=== PATIENT | female | born 1940 | race Caucasian/White ===

== ENCOUNTER → 2017-10-13 | Outpatient (CLI) | payer MEDICARE, OTHER ==
[~2017-10-13] MED LIST: ASCO500 PO; BENTYL; CONEST.625 PO; CYCL10 PO; DICMIS50EC PO; MELO7.5 PO; MULVITMINF PO; NIAC250ER PO; OXYACE5T PO; PRED20 PO
== END ==
LOC: PLD 13:23 → LAB SHORT 13:23
DX: D48.5 Neoplasm of uncertain behavior of skin (principal)
CPT/HCPCS: 88305

== ENCOUNTER → 2019-08-16 | Outpatient (CLI) | payer MEDICARE, OTHER | END | disposition home or self-care (01) | LOC: PLD 11:22 → LAB SHORT 11:22 | DX: D48.5 Neoplasm of uncertain behavior of skin (principal) | CPT/HCPCS: 88305 ==

== ENCOUNTER 2020-03-07 10:19 | Day surgery (SDC) | payer MEDICARE, OTHER ==
[~2020-03-07] VITALS: Ht 154.9 cm; Wt 61.5 kg
[2020-03-07] MEDS ORDERED: TRAM50 PO (10:59)
[2020-03-07] MEDS ORDERED: LOW DOSE ASPIRI81 M1 PO (10:59)
== END 2020-03-07 11:39 | disposition home or self-care (01) ==
LOC: ORSCSDS 10:19
PROVIDERS: Anesthesiology
PROC: 3E0R33Z Introduction of Anti-inflammatory into Spinal Canal, Percutaneous Approach (ICD-10-PCS; principal; 2020-03-07 11:30)
DX: M51.16 Intervertebral disc disorders with radiculopathy, lumbar region (principal); M54.5 Low back pain; Z79.82 Long term (current) use of aspirin; Z79.899 Other long term (current) drug therapy
CPT/HCPCS: J1040; J2001

== ENCOUNTER 2020-04-20 14:27 | Day surgery (SDC) | payer MEDICARE, OTHER ==
[~2020-04-20] VITALS: Ht 154.9 cm; Wt 63.8 kg
[~2020-04-20 14:27] MED LIST changes: +LOW DOSE ASPIRI81 M1 PO; +TRAM50 PO
== END 2020-04-20 16:02 | disposition home or self-care (01) ==
LOC: ORSCSDS 14:27
PROVIDERS: Anesthesiology
PROC: 3E0R33Z Introduction of Anti-inflammatory into Spinal Canal, Percutaneous Approach (ICD-10-PCS; principal; 2020-04-20 15:45)
DX: M51.16 Intervertebral disc disorders with radiculopathy, lumbar region (principal); Z79.01 Long term (current) use of anticoagulants; Z79.899 Other long term (current) drug therapy
CPT/HCPCS: J1040

== ENCOUNTER 2020-05-10 08:23 | Day surgery (SDC) | payer MEDICARE, OTHER ==
[~2020-05-10] VITALS: Ht 154.9 cm; Wt 64.7 kg
== END 2020-05-10 09:28 | disposition home or self-care (01) ==
LOC: ORSCSDS 08:23
PROVIDERS: Anesthesiology
PROC: 3E0R33Z Introduction of Anti-inflammatory into Spinal Canal, Percutaneous Approach (ICD-10-PCS; principal; 2020-05-10 09:30)
DX: M51.16 Intervertebral disc disorders with radiculopathy, lumbar region (principal); Z79.82 Long term (current) use of aspirin; Z79.899 Other long term (current) drug therapy
CPT/HCPCS: J1040

== ENCOUNTER 2020-12-26 10:40 | Day surgery (SDC) | payer MEDICARE, OTHER ==
[~2020-12-26] VITALS: Ht 154.9 cm; Wt 67.4 kg
== END 2020-12-26 12:06 | disposition home or self-care (01) ==
LOC: ORSCSDS 10:40
PROVIDERS: Anesthesiology
PROC: 3E0R33Z Introduction of Anti-inflammatory into Spinal Canal, Percutaneous Approach (ICD-10-PCS; principal; 2020-12-26 12:00)
DX: M51.16 Intervertebral disc disorders with radiculopathy, lumbar region (principal); E78.00 Pure hypercholesterolemia, unspecified; Z79.82 Long term (current) use of aspirin; Z79.899 Other long term (current) drug therapy
CPT/HCPCS: J1040

== ENCOUNTER 2021-04-05 10:12 | Day surgery (SDC) | payer MEDICARE, OTHER ==
[~2021-04-05] VITALS: Ht 154.9 cm; Wt 68.2 kg
== END 2021-04-05 11:50 | disposition home or self-care (01) ==
LOC: ORSCSDS 10:12
PROVIDERS: Anesthesiology
PROC: 3E0R33Z Introduction of Anti-inflammatory into Spinal Canal, Percutaneous Approach (ICD-10-PCS; principal; 2021-04-05 11:30)
DX: M51.16 Intervertebral disc disorders with radiculopathy, lumbar region (principal); M54.50 Low back pain, unspecified; E78.00 Pure hypercholesterolemia, unspecified; Z79.82 Long term (current) use of aspirin; Z79.899 Other long term (current) drug therapy
CPT/HCPCS: J1040

== ENCOUNTER 2021-10-18 11:14 | Day surgery (SDC) | payer MEDICARE, OTHER ==
[~2021-10-18] VITALS: Ht 154.9 cm; Wt 67.0 kg
== END 2021-10-18 13:22 | disposition home or self-care (01) ==
LOC: ORSCSDS 11:14
PROVIDERS: Anesthesiology
PROC: 3E0R3BZ Introduction of Anesthetic Agent into Spinal Canal, Percutaneous Approach (ICD-10-PCS; principal; 2021-10-18 12:30)
DX: M51.16 Intervertebral disc disorders with radiculopathy, lumbar region (principal); M48.061 Spinal stenosis, lumbar region without neurogenic claudication; E78.00 Pure hypercholesterolemia, unspecified; Z79.82 Long term (current) use of aspirin; Z79.899 Other long term (current) drug therapy
CPT/HCPCS: J1040

== ENCOUNTER 2022-01-08 12:51 | Day surgery (SDC) | payer MEDICARE, OTHER ==
[~2022-01-08] VITALS: Ht 154.9 cm; Wt 66.9 kg
== END 2022-01-08 13:41 | disposition home or self-care (01) ==
LOC: ORSCSDS 12:51
PROVIDERS: Anesthesiology
PROC: 3E0R33Z Introduction of Anti-inflammatory into Spinal Canal, Percutaneous Approach (ICD-10-PCS; principal; 2022-01-08 15:30)
DX: M51.16 Intervertebral disc disorders with radiculopathy, lumbar region (principal); M48.00 Spinal stenosis, site unspecified; M54.50 Low back pain, unspecified; E78.00 Pure hypercholesterolemia, unspecified; Z79.82 Long term (current) use of aspirin; Z79.899 Other long term (current) drug therapy
CPT/HCPCS: J1040

== ENCOUNTER 2022-04-17 13:55 | Day surgery (SDC) | payer MEDICARE, OTHER ==
[~2022-04-17] VITALS: Ht 154.9 cm; Wt 65.4 kg
== END 2022-04-17 15:07 | disposition home or self-care (01) ==
LOC: ORSCSDS 13:55
PROVIDERS: Anesthesiology
PROC: 3E0R33Z Introduction of Anti-inflammatory into Spinal Canal, Percutaneous Approach (ICD-10-PCS; principal; 2022-04-17 15:30)
DX: M51.16 Intervertebral disc disorders with radiculopathy, lumbar region (principal); E78.00 Pure hypercholesterolemia, unspecified; M48.061 Spinal stenosis, lumbar region without neurogenic claudication; M54.50 Low back pain, unspecified; M51.26 Other intervertebral disc displacement, lumbar region; Z79.82 Long term (current) use of aspirin; Z79.899 Other long term (current) drug therapy
CPT/HCPCS: J1040